=== PATIENT | female | born 1990 | race Caucasian/White ===

== ENCOUNTER 2024-03-22 18:21 | Emergency (ER) | payer OTHER ==
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
[2024-03-22 18:51] VITALS: BP 133/93; O2SAT 98
[2024-03-24 03:13] LABS: HIV SCREEN 4TH GENERATION Non Reactive (Non Reactive)
[2024-03-25 01:10] LABS: HCV AB Non Reactive (Non Reactive)
== END 2024-03-22 19:22 | disposition home or self-care (01) ==
LOC: ED 18:21
DX: Z77.21 Contact with and (suspected) exposure to potentially hazardous body fluids (principal); Z11.4 Encounter for screening for human immunodeficiency virus [HIV]; Z11.59 Encounter for screening for other viral diseases
CPT/HCPCS: 86317; 86803; 87389; 99283